=== PATIENT | male | born 1950 | race Caucasian/White ===

== ENCOUNTER 2017-03-28 08:52 | Day surgery (SDC) | payer OTHER ==
--- NOTE | 2017-03-28 10:10 | ED ORDER SUMMARY ---
..... Patient: ANASTACIA PEDROZA OrderSheet [facility] VisitID: [id number] [place] [address] 66y, M Registration Date/Time: 03/28/2017 ORDER SHEET Weight: 133.8 kg (stated) Allergies: No Known Drug Allergy, Plastic band aids GENERAL ORDERS: Abdomen 1V (with PO contrast, shoot 1 film immediately and the second in 10 seconds) Urgent (09:15 03/28/2017 Romulo Rose) (Ack 9:27 Cara) (Cancelled: Physician Order9:35 Romulo Rose) CBC w Diff Urgent (09:16 03/28/2017 Romulo Rose) (9:19 Gileck R.N.) CMP Urgent (09:16 03/28/2017 Romulo Rose) (9:19 Milena R.N.) UA-Culture if indicated Urgent (09:16 03/28/2017 Romulo Rose) (Ack 9:27 Cara) (13:32 Gileck R.N.) PT with INR Urgent (09:16 03/28/2017 Romulo Rose) (9:19 Milena R.N.) PTT Urgent (09:16 03/28/2017 Romulo Rose) (9:19 Gileck R.N.) Abdomen 2V (Upright) (inability to swallow) Urgent (09:34 03/28/2017 Romulo Rose) (Ack 9:38 Cara) (10:37 Gileck R.N.) Type & Screen Urgent (10:04 03/28/2017 Romulo Rose) (Ack 10:06 Cara) (10:37 Milena R.N.) MEDICATION ORDERS: - (Fresh Frozen Plasma x 2 units now) (10:03 03/28/2017 Romulo Rose) (11:28 Milena R.N.) IV FLUIDS: IV Saline Lock (09:13 03/28/2017 Lexii R.NAlcira verbal order read back to Romulo Rose) (9:13 Lexii R.N.) IV NS : initial bolus none -, then 1000 mL/hr for X1 (NOW) (09:13 03/28/2017 Romulo Rose) (9:29 Milena He) ORDER SHEET NOTES: [Electronically signed by Guzman Barcenas R.N. (13:34 03/28/2017)] [Electronically signed by Theodore Ontiveros Dr. (21:48 03/28/2017)] [Electronically locked/signed by Guzman Barcenas R.N. (13:34 03/28/2017)]
--- NOTE | 2017-03-28 10:10 | ED NURSING NOTES ---
Clinical Report - Nurses [facility] [address] [place] [address] 03/28/2017 8:53 Patient: ANASTACIA PEDROZA TRIAGE Triage time 08:57. Acuity: LEVEL 3. Chief Complaint: (Can't swallow, last time he could swallow normally was yesterday morning). SEPSIS SCREEN: Sepsis Screen. Negative (no infection suspected/documented). ANANYA COMA SCORE: [place] Coma Scale: 15- eyes open spontaneously (4); best verbal response- oriented x 4 (5); best motor response- obeys commands (6). --09:04 Guzman Barcenas R.N. 08:57 03/28/17. BP: 147/93 (regular adult cuff) taken on the left arm, while sitting. HR: 83. RR: 20. O2 saturation: 94% on room air. Temp: 98.6 F (oral). Pain level now: 01/12. --09:04 Guzman Barcenas R.N. Weight: 133.8 kg stated. Height/Length: 78 inches Per Patient. BMI: 34.1. --08:59 Guzman Barcenas R.N. Medications Flomax Oral, daily. --09:02 Guzman Barcenas R.N. Lisinopril Oral, daily (20mg or 25 mg. pt uncertain). Warfarin Sodium Oral (10mg one day and 12 mg the next day). --09:02 Guzman Barcenas R.N. Allergies No Known Drug Allergy. Plastic band aids. --09:00 Guzman Barcenas R.N. History Arrived by private vehicle. Historian: patient. Accompanied by family and spouse. Treatment MANNEQUIN MOLDER: None. SOCIAL HX: Never smoker. No alcohol use or drug use. ABUSE ASSESSMENT: No report of abuse. --09:04 Guzman Barcenas R.N. PROBLEMS: GERD. Enlarge prostate. DVT - Deep Venous Thrombosis. Hypertension. --09:01 Guzman Barcenas R.N. ADDITIONAL SURGERIES: Hernia Repair. Isaac Fundoplasty. --09:01 Guzman Barcenas R.N. Interventions ID band on patient. To treatment room. --09:04 Guzman Barcenas R.N. PHYSICAL ASSESSMENT Ambulatory to room. GENERAL / NEURO / PSYCH: Alert. Oriented X 4. Appears anxious. HEENT: Pupils equal, round and reactive to light. No facial asymmetry noted. Mucous membranes are pink. RESPIRATORY: Respirations not labored. Chest nontender. Breath sounds within normal limits. CVS: Capillary refill less than 2 seconds. Pulses within normal limits. GI / : ( nausea). Abdomen soft and nontender and normal bowel sounds. SKIN: Skin is warm and dry. Normal skin turgor. --09:05 Guzman Barcenas R.N. late entry -09:05. HEENT: ( states he is unable to swallow water, no drooling noted). RESPIRATORY: The patient can speak in full sentences. ( No voice change). --09:15 Guzman Barcenas R.N. NURSING PROGRESS NOTES Patient gowned. Head of bed elevated. Reassurance given. Two patient identifiers checked. Call light placed in reach. Side rails up x 1. Bed placed in lowest position. Brakes of bed on. Patient ready for evaluation- chart flagged. --09:06 Guzman Barcenas R.N. 09:13 03/28/2017 Site #1 started via IV in the left antecubital space with an 20g angiocath, with aseptic technique and good blood return; one attempt. Blood drawn: rainbow set. Labeled in the presence of the patient and sent to the lab. Saline lock flushed with 10 mL saline. --09:13 Mandy Robert R.N. 09:25 03/28/2017 Started bag #1 1000 mL IV Fluids IV NS (Saline); bolus of 1000 mL over 1.1 hour(s) via site #1 via IV pump. Allergies verified and confirmed 5 rights. IV patency established. IV site checked: no pain, redness, or swelling. IV flushed thoroughly pre- and post-medication administration. --09:29 Guzman Barcenas R.N. Patient transported to CT by stretcher with tech. (1714). --09:42 Guzman Barcenas R.N. 09:49 03/28/17. Patient returned from CT by stretcher with tech. --09:49 Mandy Robert R.N. late entry -11:14. ( FFP 2 units started per order). --11:26 Guzman Barcenas R.N. 11:14 03/28/2017 FFP x 2 units * IV 2 units --11:28 Guzman Barcenas R.N. ( Correction: since his arrival he has not been swallowing his secretions, constantly feels like he needs to vomit, but has not vomited in the ER.). --11:36 Guzman Barcenas R.N. 10:00 03/28/17. HR: 68. RR: 20. O2 saturation: 95% on room air. Pain level now: 03/14. --11:47 Guzman Barcenas R.N. 11:14 03/28/17. BP: 141/92. HR: 67. RR: 20. O2 saturation: 97% on room air. Temp: 97.9 F (oral). Pain level now: 03/14. --11:47 Guzman Barcenas R.N. 11:29 03/28/17. BP: 151/89. HR: 64. RR: 20. O2 saturation: 97% on room air. Temp: 98.4 F (oral). --11:48 Guzman Barcenas R.N. 11:45 03/28/17. BP: 145/95. HR: 65. RR: 20. O2 saturation: 97% on room air. Temp: 98.6 F (oral). Pain level now: 03/14. --11:49 Guzman Barcenas R.N. 12:00 03/28/17. BP: 158/76. HR: 65. RR: 20. O2 saturation: 97% on room air. Temp: 98.6 F. Pain level now: 03/14. --12:17 Guzman Barcenas R.N. 11:00 03/28/2017 IV Fluids IV NS Discontinued: bag #1 completed. Total amount infused: 1000 mL. IV patency established. IV site checked: no pain, redness, or swelling. IV flushed thoroughly. --13:32 Guzman Barcenas R.N. 12:00 03/28/2017 FFP x 2 units IV Discontinued: bag #2 completed. Total amount infused: 500 mL. IV patency established. IV site checked: no pain, redness, or swelling. IV flushed thoroughly. --13:31 Guzman Barcenas R.N. DISPOSITION / DISCHARGE 12:20 03/28/2017 Site #[address] upon admission; patent, no pain and no signs of infection or infiltration. Good blood return present. Flushed with 10 mL saline; flushes easily. --13:30 Guzman Barcenas R.N. late entry -12:25. Departure time: 1220. Condition at departure: unchanged and stable. Disposition: observation via Surgery (1220). Transported via stretcher by nurse with IV. --13:33 Guzman Barcenas R.N. 12:00 03/28/17. BP: 158/76 (regular adult cuff) taken on the right arm, while sitting. HR: 65. RR: 20. O2 saturation: 97% on room air. Temp: 98.6 F (oral). Pain level now: 03/14. --13:33 Guzman Barcenas R.N. Locked/Released at 03/28/2017 13:34 by Guzman Barcenas R.N.
--- NOTE | 2017-03-28 10:10 | ED CLINICAL REPORT ---
Clinical Report - Physicians/Mid Levels [facility] [address] [place] [address] 03/28/2017 8:53 Patient: ANASTACIA PEDROZA Time Seen: 09:08; initial patient contact. Arrived- By private vehicle. Historian- patient. HISTORY OF PRESENT ILLNESS Chief Complaint: VOMITING. can't swallow anything,. This started yesterday and is still present. It was abrupt in onset. No nausea, diarrhea, black stools, bloody stools or abdominal pain. No constipation. He has had vomiting. Last bowel movement: yesterday. The illness is described as moderate. Similar symptoms previously: None. Recent medical care: Not recently seen/assessed. REVIEW OF SYSTEMS No fever or difficulty with urination. All systems otherwise negative, except as recorded above. PAST HISTORY GERD. Enlarge prostate. DVT - Deep Venous Thrombosis. Hypertension. SURGERIES: Hiatal Hernia Repair. Isaac Fundoplasty. SOCIAL HISTORY Never smoker. No alcohol use or drug use. ADDITIONAL NOTES The nursing notes have been reviewed. PHYSICAL EXAM Vital Signs: 03/28/2017 08:57 BP: 147/93. HR: 83. RR: 20. O2 saturation: 94%. Temp: 98.6 F. Pain level now: 4/10. Have been reviewed. Hypertensive. Heart rate normal. Respiratory rate normal. Temperature normal. Oxygen saturation low. Appearance: Alert. Oriented X3. No acute distress. Eyes: Eyes normal inspection. ENT: Pharynx normal. Neck: Normal inspection. CVS: Normal heart rate and rhythm. Heart sounds normal. Respiratory: No respiratory distress. Breath sounds normal. Abdomen: Soft and nontender. Bowel sounds normal. No organomegaly. No mass. Skin: Skin warm and dry. Normal skin color. Neuro: Oriented X 3. LABS, X-RAYS, AND EKG KUB: (Contrast in the esophagus abruptly stopping at the EG junction). Views: supine AP. Technique: good. The X-rays were independently viewed by me and interpreted contemporaneously by me. Prior films were not available for comparison. Laboratory Tests: CBC w Diff: (KARINA: 03/28/2017 09:05) ( MsgRcvd 03/28/2017 09:25) Final results Test Result Flag Units (Reference) WHITE BLOOD COUNT 6.6 K/uL (4.5-11.5) RED BLOOD COUNT 4.39 L M/uL (4.50-5.90) HEMOGLOBIN 14.2 gm/dL (13.5-17.5) HEMATOCRIT 41.8 % (41.0-53.0) MEAN CELL VOLUME 95 fL (80-100) MEAN CORPUSCULAR HGB 32 pg (26-34) MEAN CORPUSCULAR HGB CONC 34 g/dL (31-37) RED CELL DISTRIBUTION WIDTH 13.1 % (11.6-14.8) PLATELET COUNT 194 K/uL (150-400) NEUTROPHIL % 72.9 % (50-75) LYMPH % 17.5 L % (25-40) MONO % 7.1 % (3-14) EOSINOPHIL % 1.6 % (0-4) BASOPHIL % 0.9 % (0-2) PT with INR: (KARINA: 03/28/2017 09:05) ( [facility] [place] 03/28/2017 09:30) Final results Test Result Flag Units (Reference) INR 2.5 H (0.8-1.2) Low Intensity Therapy: INR 1.5-2.0 PT range 18.5-23.1Mod.Intensity Therapy: INR 2.0-3.0 PT range 23.1-31.5High Intensity Therapy: INR 2.5-3.5 PT range 27.4-35.5High Intensity Therapy 2: INR 3.0-4.0 PT range 31.5-39.3 APTT 35 H SECONDS (24-34) CMP: (KARINA: 03/28/2017 09:05) ( [facility] [place] 03/28/2017 09:31) Final results Test Result Flag Units (Reference) GLUCOSE 98 mg/dL (70-110) BUN 14 mg/dL (7-18) CREATININE 1.0 mg/dL (0.6-1.3) Estimated GFR >60 mL/min Estimated GFR- >60 mL/min Note: Persistent reduction over 3 months in eGFR<60 mL/min/1.73 m2 defines CKD. Patients with eGFR values>=60 mL/min/1.73 m2 may also have CKD if evidence ofpersistent proteinuria. Additional information may be foundat www.kidney.org. SODIUM 145 mmol/L (136-145) POTASSIUM 3.6 mmol/L (3.5-5.1) CHLORIDE 106 mmol/L (98-107) CARBON DIOXIDE 33 H mmol/L (21-32) CALCIUM 8.3 L mg/dL (8.5-10.1) TOTAL PROTEIN 7.4 g/dL (6.4-8.2) ALBUMIN 3.6 g/dL (3.3-5.0) BILIRUBIN, TOTAL 0.6 mg/dL (0.0-1.0) ALKALINE PHOSPHATASE 72 U/L (46-116) AST (SGOT) 16 U/L (15-37) ALT (SGPT) 23 U/L (12-78) . PROGRESS AND PROCEDURES Discussed case with on-call health care provider, (call returned 10:10 Dr. Mar, give 2 u FFP and admit and will come in for EGD.). Reviewed test results and need for additional work-up. Health care provider will see patient in hospital. Disposition: Observation in Acute Care. CLINICAL IMPRESSION Oral anticoagulation therapy with therapeutic INR. (Obstruction of gastroesophageal junction Primary Dx). INSTRUCTIONS Follow-up: Blood pressure screening was not performed during this visit because the patient has an active diagnosis of hypertension. (Electronically signed by Theodore Ontiveros Dr. 03/28/2017 21:48)
--- NOTE | 2017-03-28 10:10 | ED CLINICAL REPORT ---
Clinical Report - Physicians/Mid Levels [facility] [address] [place] [place] [address] 03/28/2017 8:53 Patient: ANASTACIA PEDROZA Time Seen: 09:08; initial patient contact. Arrived- By private vehicle. Historian- patient. HISTORY OF PRESENT ILLNESS Chief Complaint: VOMITING. can't swallow anything,. This started yesterday and is still present. It was abrupt in onset. No nausea, diarrhea, black stools, bloody stools or abdominal pain. No constipation. He has had vomiting. Last bowel movement: yesterday. The illness is described as moderate. Similar symptoms previously: None. Recent medical care: Not recently seen/assessed. REVIEW OF SYSTEMS No fever or difficulty with urination. All systems otherwise negative, except as recorded above. PAST HISTORY GERD. Enlarge prostate. DVT - Deep Venous Thrombosis. Hypertension. SURGERIES: Hiatal Hernia Repair. Isaac Fundoplasty. SOCIAL HISTORY Never smoker. No alcohol use or drug use. ADDITIONAL NOTES The nursing notes have been reviewed. PHYSICAL EXAM Vital Signs: 03/28/2017 08:57 BP: 147/93. HR: 83. RR: 20. O2 saturation: 94%. Temp: 98.6 F. Pain level now: 4/10. Have been reviewed. Hypertensive. Heart rate normal. Respiratory rate normal. Temperature normal. Oxygen saturation low. Appearance: Alert. Oriented X3. No acute distress. Eyes: Eyes normal inspection. ENT: Pharynx normal. Neck: Normal inspection. CVS: Normal heart rate and rhythm. Heart sounds normal. Respiratory: No respiratory distress. Breath sounds normal. Abdomen: Soft and nontender. Bowel sounds normal. No organomegaly. No mass. Skin: Skin warm and dry. Normal skin color. Neuro: Oriented X 3. LABS, X-RAYS, AND EKG KUB: (Contrast in the esophagus abruptly stopping at the EG junction). Views: supine AP. Technique: good. The X-rays were independently viewed by me and interpreted contemporaneously by me. Prior films were not available for comparison. Laboratory Tests: CBC w Diff: (KARINA: 03/28/2017 09:05) ( MsgRcvd 03/28/2017 09:25) Final results Test Result Flag Units (Reference) WHITE BLOOD COUNT 6.6 K/uL (4.5-11.5) RED BLOOD COUNT 4.39 L M/uL (4.50-5.90) HEMOGLOBIN 14.2 gm/dL (13.5-17.5) HEMATOCRIT 41.8 % (41.0-53.0) MEAN CELL VOLUME 95 fL (80-100) MEAN CORPUSCULAR HGB 32 pg (26-34) MEAN CORPUSCULAR HGB CONC 34 g/dL (31-37) RED CELL DISTRIBUTION WIDTH 13.1 % (11.6-14.8) PLATELET COUNT 194 K/uL (150-400) NEUTROPHIL % 72.9 % (50-75) LYMPH % 17.5 L % (25-40) MONO % 7.1 % (3-14) EOSINOPHIL % 1.6 % (0-4) BASOPHIL % 0.9 % (0-2) PT with INR: (KARINA: 03/28/2017 09:05) ( [facility] [place] [place] 03/28/2017 09:30) Final results Test Result Flag Units (Reference) INR 2.5 H (0.8-1.2) Low Intensity Therapy: INR 1.5-2.0 PT range 18.5-23.1Mod.Intensity Therapy: INR 2.0-3.0 PT range 23.1-31.5High Intensity Therapy: INR 2.5-3.5 PT range 27.4-35.5High Intensity Therapy 2: INR 3.0-4.0 PT range 31.5-39.3 APTT 35 H SECONDS (24-34) CMP: (KARINA: 03/28/2017 09:05) ( [facility] [place] [place] 03/28/2017 09:31) Final results Test Result Flag Units (Reference) GLUCOSE 98 mg/dL (70-110) BUN 14 mg/dL (7-18) CREATININE 1.0 mg/dL (0.6-1.3) Estimated GFR >60 mL/min Estimated GFR- >60 mL/min Note: Persistent reduction over 3 months in eGFR<60 mL/min/1.73 m2 defines CKD. Patients with eGFR values>=60 mL/min/1.73 m2 may also have CKD if evidence ofpersistent proteinuria. Additional information may be foundat www.kidney.org. SODIUM 145 mmol/L (136-145) POTASSIUM 3.6 mmol/L (3.5-5.1) CHLORIDE 106 mmol/L (98-107) CARBON DIOXIDE 33 H mmol/L (21-32) CALCIUM 8.3 L mg/dL (8.5-10.1) TOTAL PROTEIN 7.4 g/dL (6.4-8.2) ALBUMIN 3.6 g/dL (3.3-5.0) BILIRUBIN, TOTAL 0.6 mg/dL (0.0-1.0) ALKALINE PHOSPHATASE 72 U/L (46-116) AST (SGOT) 16 U/L (15-37) ALT (SGPT) 23 U/L (12-78) . PROGRESS AND PROCEDURES Discussed case with on-call health care provider, (call returned 10:10 Dr. Mar, give 2 u FFP and admit and will come in for EGD.). Reviewed test results and need for additional work-up. Health care provider will see patient in hospital. Disposition: Observation in Acute Care. CLINICAL IMPRESSION Oral anticoagulation therapy with therapeutic INR. (Obstruction of gastroesophageal junction Primary Dx). INSTRUCTIONS Follow-up: Blood pressure screening was not performed during this visit because the patient has an active diagnosis of hypertension. (Electronically signed by Theodore Ontiveros Dr. 03/28/2017 21:48)
--- NOTE | 2017-03-28 10:10 | ED ORDER SUMMARY ---
..... Patient: ANASTACIA PEDROZA OrderSheet [facility] VisitID: [id number] [place] [address] 66y, M Registration Date/Time: 03/28/2017 ORDER SHEET Weight: 133.8 kg (stated) Allergies: No Known Drug Allergy, Plastic band aids GENERAL ORDERS: Abdomen 1V (with PO contrast, shoot 1 film immediately and the second in 10 seconds) Urgent (09:15 03/28/2017 Romulo Rose) (Ack 9:27 Cara) (Cancelled: Physician Order9:35 Romulo Rose) CBC w Diff Urgent (09:16 03/28/2017 Romulo Rose) (9:19 Gileck R.N.) CMP Urgent (09:16 03/28/2017 Romulo Rose) (9:19 Milena R.N.) UA-Culture if indicated Urgent (09:16 03/28/2017 Romulo Rose) (Ack 9:27 Cara) (13:32 Gileck R.N.) PT with INR Urgent (09:16 03/28/2017 Romulo Rose) (9:19 Milena R.N.) PTT Urgent (09:16 03/28/2017 Romulo Rose) (9:19 Gileck R.N.) Abdomen 2V (Upright) (inability to swallow) Urgent (09:34 03/28/2017 Romulo Rose) (Ack 9:38 Cara) (10:37 Gileck R.N.) Type & Screen Urgent (10:04 03/28/2017 Romulo Rose) (Ack 10:06 Cara) (10:37 Milena R.N.) MEDICATION ORDERS: - (Fresh Frozen Plasma x 2 units now) (10:03 03/28/2017 Romulo Rose) (11:28 Milena R.N.) IV FLUIDS: IV Saline Lock (09:13 03/28/2017 Lexii R.NAlcira verbal order read back to Romulo Rose) (9:13 Lexii R.N.) IV NS : initial bolus none -, then 1000 mL/hr for X1 (NOW) (09:13 03/28/2017 Romulo Rose) (9:29 Milena eH) ORDER SHEET NOTES: [Electronically signed by Guzman Barcenas R.N. (13:34 03/28/2017)] [Electronically signed by Theodore Ontiveros Dr. (21:48 03/28/2017)] [Electronically locked/signed by Guzman Barcenas R.N. (13:34 03/28/2017)]
--- NOTE | 2017-03-28 11:10 | DIAGNOSTIC IMAGING REPORT ---
PROCEDURE: XR ABDOMEN 2 VIEWS INDICATION: ABDOMINAL PAIN TECHNIQUE: Three AP spot views. COMPARISON: None. FINDINGS: There is a small amount of contrast in the distal esophagus for complete blockage at the GE junction. Paucity of bowel gas. No evidence of a mass or suspicious calcification. Mild dextroscoliosis. IMPRESSION: 1. Distal esophageal obstruction at the GE junction. Consider foreign body or stricture 2. Paucity of bowel gas 3. Results discussed with Dr. Ontiveros
--- NOTE | 2017-03-28 13:45 | NUR ---
REC'D FROM OR;SPONT RESP. HOB ELEVATED 40 DEGREES. ROUSES TO VERBAL.
--- NOTE | 2017-03-28 13:48 | Provider's Discharge Care Plan ---
Problem, Goal, Plan Problem List 1. Esophageal obstruction Instructions: Follow up as needed (soft foods, avoid chunks) 2. Anticoagulated on Coumadin Instructions: restart coumadin, wear prescription compression stockings
--- NOTE | 2017-03-28 14:00 | NUR ---
AWAKE AND ALERT; DR. FIERRO TALKING TO PT RE FINDINGS. INSTRUCTED TO EAT SOFT FOODS ONLY DUE TO TIGHT FOOD PIPE.
--- NOTE | 2017-03-28 14:15 | NUR ---
JAIMIE; INFORMED THAT PT NEEDS TO STAY ON A SOFT DIET - THINGS THAT HE CAN SUCK THRO A STRAW; DR FIERRO ALSO SPOKE WITH PT.S AND DETAILED HIS DIET REGIME.
[2017-03-28 14:22] VITALS: BP 137/73
[2017-03-28 14:30] VITALS: BP 144/86
--- NOTE | 2017-03-28 14:30 | NUR ---
RECEIVED PT FROM PACU AWAKE AND ALERT. C/O BURNING THROAT PAIN AND A HEADACHE. GAVE ICEPACK FOR NECK AND STARTED ON ICE CHIPS. VSWendy. STEPHANIE.
[2017-03-28 14:45] VITALS: BP 150/92
[2017-03-28 15:00] VITALS: BP 152/92
--- NOTE | 2017-03-28 16:35 | NUR ---
C/O BURNING THROAT RATED 10/10. ICE CHIPS NOT WORKING. NOTIFIED DR FIERRO AND RECEIVED NEW ORDERS. GAVE 15 ML LORTAB, EFFECTIVE. WENT OVER DC INSTRUCTIONS, GAVE EDUCATION ON CURRENT DIAGNOSIS. PT STATED UNDERSTANDING. ESCORTED OUT TO PRIVATE CAR HOME.
--- NOTE | 2017-03-28 21:48 | ED DISCHARGE INSTRUCTIONS ---
Patient: ANASTACIA PEDROZA General Instructions [facility] VisitID: [id number] [address] [place] [address] 66y, M Registration Date/Time: 03/28/2017 Oral anticoagulation therapy with therapeutic INR. (Obstruction of gastroesophageal junction Primary Dx). INSTRUCTIONS Follow-up: Blood pressure screening was not performed during this visit because the patient has an active diagnosis of hypertension. (Electronically signed by Theodore Ontiveros Dr. 03/28/2017 21:48)
--- NOTE | 2017-03-28 21:48 | ED MED RECONCILIATION SUMMARY ---
Patient: ANASTACIA PEDROZA Medication Reconciliation Report [facility] VisitID: [id number] [address] [place] [address] 66y, M Registration Date/Time: 03/28/2017 Weight: 133.8 kg Height/Length: 78 in. BMI: 34.1 ALLERGIES: No Known Drug Allergy, Plastic band aids The patient's Home Medications are listed below: THE FOLLOWING MEDICATIONS NEED TO BE RECONCILED: Flomax Oral, daily Lisinopril Oral, daily, 20mg or 25 mg. pt uncertain Warfarin Sodium Oral, 10mg one day and 12 mg the next day The source(s) of the original Home Medication information: Not obtained. The following Medications were given to the patient in the Emergency Department: IV NS IV Fluids bolus 1000 mL over 1.1 hour(s), administered: 03/28/2017 9:25:00 AM FFP x 2 units IV bolus 0, then 2 units, administered: 03/28/2017 11:14:00 AM The following Medications were prescribed to the patient: None.
--- NOTE | 2017-03-28 21:48 | ED MAR SUMMARY ---
..... Medication Administration Record [facility] [address] [place] [address] Patient: ANASTACIA PEDROZA Visit ID: [id number] 66y, M Weight: 133.8 kg Height/Length: 78 in BMI: 34.1 ALLERGIES: No Known Drug Allergy, Plastic band aids Start 09:25 03/28/2017 Guzman Barcenas R.N., Stop 11:00 03/28/2017 Guzman Barcenas R.N. Medication Administered: IV NS (SALINE), Dose: IV Fluids, Bolus: 1000 mL over 1.1 hour(s), Dispensed: 1000 mL bag, Site: #1 left AC. Medication Ordered: IV NS : initial bolus none -, then 1000 mL/hr for X1 (NOW). Start 11:14 03/28/2017 Guzman Barcenas R.N., Stop 12:00 03/28/2017 Guzman Barcenas R.N. Medication Administered: FFP x 2 units *, Dose: 2 units * IV. Medication Ordered: - (Fresh Frozen Plasma x 2 units now).
--- NOTE | 2017-03-28 21:48 | ED MED RECONCILIATION SUMMARY ---
Patient: ANASTACIA PEDROZA Medication Reconciliation Report [facility] VisitID: [id number] [address] [place] [address] 66y, M Registration Date/Time: 03/28/2017 Weight: 133.8 kg Height/Length: 78 in. BMI: 34.1 ALLERGIES: No Known Drug Allergy, Plastic band aids The patient's Home Medications are listed below: THE FOLLOWING MEDICATIONS NEED TO BE RECONCILED: Flomax Oral, daily Lisinopril Oral, daily, 20mg or 25 mg. pt uncertain Warfarin Sodium Oral, 10mg one day and 12 mg the next day The source(s) of the original Home Medication information: Not obtained. The following Medications were given to the patient in the Emergency Department: IV NS IV Fluids bolus 1000 mL over 1.1 hour(s), administered: 03/28/2017 9:25:00 AM FFP x 2 units IV bolus 0, then 2 units, administered: 03/28/2017 11:14:00 AM The following Medications were prescribed to the patient: None.
--- NOTE | 2017-03-28 21:48 | ED DISCHARGE INSTRUCTIONS ---
Patient: ANASTACIA PEDROZA General Instructions [facility] VisitID: [id number] [address] [place] [address] 66y, M Registration Date/Time: 03/28/2017 Oral anticoagulation therapy with therapeutic INR. (Obstruction of gastroesophageal junction Primary Dx). INSTRUCTIONS Follow-up: Blood pressure screening was not performed during this visit because the patient has an active diagnosis of hypertension. (Electronically signed by Theodore Ontiveros Dr. 03/28/2017 21:48)
--- NOTE | 2017-03-28 21:48 | ED MAR SUMMARY ---
..... Medication Administration Record [facility] [address] [place] [address] Patient: ANASTACIA PEDROZA Visit ID: [id number] 66y, M Weight: 133.8 kg Height/Length: 78 in BMI: 34.1 ALLERGIES: No Known Drug Allergy, Plastic band aids Start 09:25 03/28/2017 Guzman Barcenas R.N., Stop 11:00 03/28/2017 Guzman Barcenas R.N. Medication Administered: IV NS (SALINE), Dose: IV Fluids, Bolus: 1000 mL over 1.1 hour(s), Dispensed: 1000 mL bag, Site: #1 left AC. Medication Ordered: IV NS : initial bolus none -, then 1000 mL/hr for X1 (NOW). Start 11:14 03/28/2017 Guzman Barcenas R.N., Stop 12:00 03/28/2017 Guzman Barcenas R.N. Medication Administered: FFP x 2 units *, Dose: 2 units * IV. Medication Ordered: - (Fresh Frozen Plasma x 2 units now).
--- NOTE | 2017-03-29 02:13 | CONSULTATION REPORT ---
DATE OF CONSULTATION: 03/28/2017 CHIEF COMPLAINT: 1. Obstruction, inability to swallow HISTORY OF PRESENT ILLNESS: The patient is a 66-year-old man who last night developed symptoms of esophageal blockage. He reports a 1 year history of intermittent dysphagia and partial blockages. In most cases, he was able to relax and once his anxiety went away, things eventually went through. On this occasion, nothing would go through and the patient could not swallow his own secretions. The patient had a previous laparoscopic antireflux surgery done in [place] in 2002. He additionally had a laparoscopic ventral hernia repaired. MEDICAL/SURGICAL HISTORY: Past medical history includes hypertension, recurrent deep vein thrombosis and venous stasis problems in his right lower extremity. Past surgery : Laparoscopic Isaac in 2002 and lipoma excisions, ventral hernia repair. Additional surgery, in 2003 foot surgery in [place], [place]. His last sigmoidoscopy colonoscopy was in 2011. MEDICATIONS: 1. Lisinopril 12.5 mg daily. 2. Tamsulosin 0.8 mg oral daily. 3. Warfarin 10 mg 1 a day alternating with 12 mg. ALLERGIES: 1. ADHESIVE AND PLASTIC BAND-AIDS, BUT NOT CLOTH BAND-AIDS. 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 He is . He does not take alcohol. He does not smoke cigarettes. FAMILY HISTORY: Father of congestive heart failure. His mother had renal carcinoma and dementia. REVIEW OF SYSTEMS: A multipoint review of systems was obtained. Additionally a multipoint questionnaire was filled out using the history and physical questionnaire covering numerous systems. The patient denied any unusual weight gain or loss. He does report fatigue, pain, weakness, eye pain. He uses corrective lenses. He has had some hearing loss. He confirms the throat trouble he is in with. He has had a cough, occasional pleuritic chest pain, ankle swelling, high blood pressure, peripheral vascular disease involving his veins, frequent urination and nocturia. He denies hematochezia, diarrhea, or hematemesis. There is a history of joint stiffness, pain and swelling. He gets headaches. He has had easy bruising while on Coumadin. He has problems with sleeping, nervousness, and anxiety. He has had a hernia fixed, erectile dysfunction. PHYSICAL EXAMINATION: VITAL SIGNS: Initial blood pressure 147/73, heart rate of 83, respirations 20. Room air O2 saturation 94%, temperature 98.6, weight 133.8 kilograms. Height 70 inches. BMI of 34.1. GENERAL: The patient is alert and cooperative. He provides appropriate answers and appears to be oriented to time and place. HEENT: Ears and nose without gross external lesions. Eyes are equal. He is anicteric. NECK: Without palpable masses. There are no bruits in the carotids. There is no thyromegaly or supraclavicular adenopathy. CHEST: Clear without wheeze or rales. HEART: Regular, without murmur or gallop. ABDOMEN: Reveals a protuberant abdomen. There is an upper midline scar. There are no palpable hernias when reclining. ABDOMEN: Soft. No localized tenderness. LAB/IMAGING: White count 6.6, hemoglobin and hematocrit 14.2 and 41.8, INR was 2.5, PTT of 35, glucose was normal, electrolytes normal. The patient had a barium swallow that showed an obstruction of the lower esophagus. IMPRESSION: 1. Esophageal obstruction PLAN: I recommended the patient undergo an EGD. I reported to the patient the etiologies could be a stricture or foreign body, but could also represent neoplasm. I made him aware that our goal is to dilate this and fix it; however if neoplasm strongly suspected, we may choose to wait for biopsies to come back before deciding on a permanent strategy. Unfortunately, right now he is fully obstructed and he needs something done to get him swallowing again. The patient is aware of risks such as perforation and bleeding and would like proceed as described.
--- NOTE | 2017-03-29 02:23 | OPERATIVE REPORT ---
DATE OF SURGERY: 03/28/2017 SURGEON: Mohamud Mar MD PREOPERATIVE DIAGNOSIS: 1. Esophageal obstruction POSTOPERATIVE DIAGNOSIS: 1. Esophageal stricture with foreign body obstruction PROCEDURE PERFORMED: 1. Esophagogastroduodenoscopy with dilation of esophagus and displacement of foreign body. ANESTHESIA: General. INDICATIONS: The patient is a 66-year-old man with acute obstruction of esophagus. He had a previous gastroesophageal operation. SURGICAL TECHNIQUE: The patient was taken to the endoscopy suite, where a general anesthetic was administered and the patient was placed in the supine position. The upper GI endoscope was introduced down the esophagus. There was a leahy of barium which blocked vision which was mixed with chunks of meat. The barium as much as possible was rinsed and suctioned away to allow for visualization. There appeared to be some meat in the lower esophagus that would not pass into the stomach. No effort was made to push this through except for insufflation. The 12-15 mm dilating balloon was inserted down the endoscope and gently guided without resistance through the gastroesophageal junction past the meat bolus. It was then partially inflated in the stomach and pulled back until resistance was felt. It was partially deflated, pulled back into the GE junction and inflated to 12 mm. At this point, it could be extracted. An effort was made to push the balloon back down, but since the balloon had been inflated it would not go back through and therefore the entire apparatus was removed. The balloon was cut away and the endoscope introduced. The endoscope could be now maneuvered into the stomach, but there was still a large meat foreign body. A retroflexed view at this time demonstrated a big fungating mass at the GE junction; however, with biopsies this did not bleed and eventually this was discerned to be a large dumbbell shaped piece of meat that was partially across the GE junction. There was also a shreddy white piece of what eventually looked like fibrous chicken that was imbedded in this chunk, though at first it gave the appearance of perhaps eroded Goretex. Several samples were first obtained, but it became increasingly apparent that this was inert material and was not submitted for histopathology. With the scope in the stomach, a 15-18 mm dilating balloon was inserted, but would not pass the scope. For some reason, the scope biopsy channel was gritty or somehow affected by the barium. This was true despite these lubricants. The endoscope was retrieved and then placed through the nasopharynx down the esophagus and slid without resistance alongside the scope and appeared the stomach and alongside the scope. The balloon was inflated in the stomach part way and pulled up to the GE junction until resistance was felt. It was partially deflated and then positioned across the GE junction. Initially it was taken to 15 mm without difficulty following which it was gradually in small increments brought up to 18 mm. Once this was completed, the balloon was removed. At this point, the large dumbbell shaped foreign body fell into the stomach without too much difficulty and the GE junction was revisualized and it did not demonstrate evidence of neoplastic change from either above or below. Once the esophagus was cleared, the endoscope was withdrawn and the patient left in good condition. He was advised to eat soft foods and be careful about masticating properly.
== END 2017-03-28 16:30 | disposition home or self-care (01) ==
LOC: ED SRH 08:52 → TRANS SRH 10:25 → ED SRH 10:25 → SDC SRH 10:25 → ACUTE2 SRH 13:38 → TRANS SRH 13:38 → SDC SRH 16:30 → ACUTE2 SRH 16:30
PROVIDERS: Surgery
PROC: 0D758ZZ Dilation of Esophagus, Via Natural or Artificial Opening Endoscopic (ICD-10-PCS; principal; 2017-03-28 12:00)
DX: T18.128A Food in esophagus causing other injury, initial encounter (principal); Z86.718 Personal history of other venous thrombosis and embolism; Z79.01 Long term (current) use of anticoagulants; I10 Essential (primary) hypertension; Z98.890 Other specified postprocedural states
CPT/HCPCS: 29229; 50004; 60001; 70002; 80102; 82729; 82730; 83526; 90001; 90004; 90100; 90155; 91004; 94001; 94060; 95059